=== PATIENT | male | born 1990 | race Hispanic/Latino ===

== ENCOUNTER 2019-08-28 15:43 | Emergency (ER) | payer SELFPAY ==
[2019-08-28] MEDS ORDERED: SODIUM CHLORIDE 0.9% 1000 ML 1,000 ML IV ONE (16:14)
--- NOTE | 2019-08-28 16:20 | Emergency Department Report ---
ED Alcohol HPI - General Chief Complaint: Altered Mental Status Stated Complaint: AMS Time Seen by Provider: 08/28/19 16:14 Source: EMS Mode of arrival: Stretcher Limitations: Other - History of Present Illness Initial Comments: Patient is 28 years old male, unknown to me. Patient brought to the emergency room via EMS for evaluation of altered mental status and possible intoxication. EMS stated that patient was found unresponsive in a neighborhood driveway. Patient initially was not responding to EMS but then patient started responding to voice stimuli. Patient with a strong smell of alcohol. In the emergency room patient is obtunded with pupils are 4 mm and reactive to light. Vital sign stable with oxygen saturation of 100% on room air. Upon exposing the patient for exam, a bag of marijuana found in patient clothes MD Complaint: alcohol intoxication - Related Data Previous Rx's Medication Instructions Recorded Last Taken Type Antacid [Alum-Mag Hydrox-Simeth 30 ml PO Q4H PRN #1 bottle 01/29/16 Unknown Rx [id number]] Divalproex ER [Depakote ER] 250 mg PO QAM #30 tablet 01/29/16 Unknown Rx Divalproex ER [Depakote ER] 500 mg PO QPM #30 tablet 01/29/16 Unknown Rx Nicotine [Habitrol] 21 mg TD QDAY@2200 #7 patch 01/29/16 Unknown Rx Sennosides/Docusate [Senokot S] 1 tab PO QHS #30 tablet 01/29/16 Unknown Rx oxyCODONE /ACETAMINOPHEN [Percocet 1 tab PO Q4H PRN #10 tablet 01/29/16 Unknown Rx 5/325 mg] polyethylene glycoL 3350 [Miralax 17 gm PO QDAY #30 powd.pack 01/29/16 Unknown Rx 3350] Allergies Allergy/AdvReac Type Severity Reaction Status Date / Time tramadol HCl [From Ultram] Allergy Unknown Verified 01/26/16 14:34 ED Review of Systems ROS: Stated complaint: AMS Other details as noted in HPI Comment: Unobtainable due to pts medical conditions ED Past Medical Hx - Past Medical History Hx Congestive Heart Failure: No Hx Diabetes: No Hx Asthma: No Hx COPD: No Additional medical history: JODY - Surgical History Additional Surgical History: JODY - Social History Smoking Status: Unknown if ever smoked - Medications Home Medications: Home Medications Medication Instructions Recorded Confirmed Last Taken Type Antacid [Alum-Mag Hydrox-Simeth 30 ml PO Q4H PRN #1 bottle 01/29/16 Unknown Rx [id number]] Divalproex ER [Depakote ER] 250 mg PO QAM #30 tablet 01/29/16 Unknown Rx Divalproex ER [Depakote ER] 500 mg PO QPM #30 tablet 01/29/16 Unknown Rx Nicotine [Habitrol] 21 mg TD QDAY@2200 #7 patch 01/29/16 Unknown Rx Sennosides/Docusate [Senokot S] 1 tab PO QHS #30 tablet 01/29/16 Unknown Rx oxyCODONE /ACETAMINOPHEN [Percocet 1 tab PO Q4H PRN #10 tablet 01/29/16 Unknown Rx 5/325 mg] polyethylene glycoL 3350 [Miralax 17 gm PO QDAY #30 powd.pack 01/29/16 Unknown Rx 3350] ED Physical Exam - General Limitations: Other General appearance: appears intoxicated, obtunded - Head Head exam: Present: atraumatic, normocephalic, normal inspection - Eye Eye exam: Present: normal appearance, PERRL - ENT ENT exam: Present: normal exam, normal orophraynx, mucous membranes moist - Neck Neck exam: Present: normal inspection, full ROM. Absent: tenderness, meningismus, lymphadenopathy, thyromegaly - Respiratory Respiratory exam: Present: normal lung sounds bilaterally - Cardiovascular Cardiovascular Exam: Present: regular rate, normal rhythm, normal heart sounds - GI/Abdominal GI/Abdominal exam: Present: soft, normal bowel sounds. Absent: distended, tenderness, guarding, rebound, rigid, organomegaly, mass, bruit, pulsatile mass, hernia - Extremities Exam Extremities exam: Present: normal inspection, full ROM, normal capillary refill. Absent: pedal edema, calf tenderness - Back Exam Back exam: Present: normal inspection, full ROM. Absent: CVA tenderness (R), CVA tenderness (L) - Neurological Exam Neurological exam: Present: altered - Skin Skin exam: Present: warm, intact, normal color ED Course Vital Signs 08/28/19 08/28/19 08/28/19 16:12 16:16 16:46 Temperature 97.8 F Pulse Rate 76 70 66 Respiratory 14 11 L 12 Rate Blood Pressure 101/51 101/51 95/49 Blood Pressure [Right] O2 Sat by Pulse 95 94 99 Oximetry 08/28/19 08/28/19 08/28/19 17:00 18:01 23:16 Temperature Pulse Rate 66 Respiratory 11 L 18 Rate Blood Pressure Blood Pressure [Right] O2 Sat by Pulse Oximetry 08/29/19 08/29/19 02:11 08:13 Temperature 97.8 F 98.0 F Pulse Rate 70 83 Respiratory 100 H 18 Rate Blood Pressure Blood Pressure 148/79 113/74 [Right] O2 Sat by Pulse 100 Oximetry ED Medical Decision Making - Lab Data Result diagrams: 08/28/19 16:26 08/28/19 16:26 - Medical Decision Making Patient is 28 years old male, unknown to me. Patient brought to the emergency room via EMS for evaluation of altered mental status and possible intoxication. EMS stated that patient was found unresponsive in a neighborhood driveway. Patient initially was not responding to EMS but then patient started responding to voice stimuli. Patient with a strong smell of alcohol. In the emergency room patient is obtunded with pupils are 4 mm and reactive to light. Vital sign stable with oxygen saturation of 100% on room air. Upon exposing the patient for exam, a bag of marijuana found in patient clothes. Patient informed the nurse that he does not want to live anymore and he is suicidal. Patient put on 1013. Labs reviewed and showed EtOH level of 0.27. Mental health evaluation requested. Patient evaluated by our psychiatric team, Dr. Bey and advised the patient to be discharged home and to follow-up as an outpatient. Patient given local resources for outpatient follow-up. Patient is currently denying any suicidal or homicidal ideation. No visual or auditory hallucination. Patient is medically and psychiatrically stable for discharge. Critical care attestation.: If time is entered above; I have spent that time in minutes in the direct care of this critically ill patient, excluding procedure time. ED Disposition Clinical Impression: Alcohol intoxication, Suicidal ideation, Drug abuse Disposition: [id number] TO HOME OR SELFCARE Is pt being admited?: No Condition: Stable Instructions: Suicide Prevention for Adults (ED), Alcohol Intoxication (ED) Referrals: NABIL GRIJALVA MD [Primary Care Provider] - 3-5 Days
[2019-08-28 16:44] LABS: Basophils # (Auto) 0.1 K/mm3 (0.0-0.1); Basophils % (Auto) 0.7 % (0.0-1.8); Hematocrit 40.9 % (35.5-45.6); Hemoglobin 13.5 gm/dl (11.8-15.2); Lymphocytes # (Auto) 1.5 K/mm3 (1.2-5.4); Lymphocytes % (Auto) 20.5 % (13.4-35.0); Mean Corpuscular HGB Conc 33 % (32-34); Mean Corpuscular Volume 89 fl (84-94); Monocytes # (Auto) 0.3 K/mm3 (0.0-0.8); Monocytes % (Auto) 3.8 % (0.0-7.3); Platelet Count 369 K/mm3 (140-440); Red Blood Count 4.61 M/mm3 (3.65-5.03); Red Cell Distribution Width 14.5 % (13.2-15.2)
[2019-08-28 17:03] LABS: Alanine Aminotransferase 12 units/L (7-56); Albumin 3.9 g/dL (3.9-5); BUN/Creatinine Ratio 14; Blood Urea Nitrogen 11 mg/dL (9-20); Calcium 8.4 mg/dL (8.4-10.2); Hemolysis Index 11
[2019-08-28 17:07] LABS: Bilirubin,Direct < 0.2 mg/dL (0-0.2)
[2019-08-28 19:23] LABS: Bilirubin,Urine NEG (Negative); Blood,Urine NEG (Negative); Color,Urine Straw (Yellow); Mucus,Urine FEW /HPF; Protein,Urine <15 mg/dL mg/dL (Negative); Urobilinogen,Urine < 2.0 mg/dL (<2.0); WBC,Urine < 1.0 /HPF (0.0-6.0)
[2019-08-28 19:30] LABS: Amphetamine Screen,Urine PRESUMPTIVE NEGATIVE; Benzodiazepines Screen,Urine PRESUMPTIVE NEGATIVE; Cocaine Screen,Urine PRESUMPTIVE NEGATIVE; Methadone Screen,Urine PRESUMPTIVE NEGATIVE; Opiate Screen,Urine PRESUMPTIVE NEGATIVE
[2019-08-28 19:45] LABS: Cannabinoid Screen,Urine PRESUMPTIVE POSITIVE
[2019-08-29 08:15] VITALS: BP 113/74
== END 2019-08-29 13:54 | disposition home or self-care (01) ==
LOC: ED 15:43
DX: F10.129 Alcohol abuse with intoxication, unspecified (principal); R45.851 Suicidal ideations; F19.10 Other psychoactive substance abuse, uncomplicated; Z88.8 Allergy status to other drugs, medicaments and biological substances
CPT/HCPCS: 36415; 80048; 80076; 80307; 81001; 82140; 85025; 96360; 99284; J7030; 80320; G0480